=== PATIENT | male | born 1975 | race Two or more races ===

== ENCOUNTER 2024-08-05 11:25 | Outpatient (AMB) | payer OTHER, SELFPAY ==
--- NOTE | 2024-08-05 11:37 | HO.NEPHOV ---
Vital Signs 08/05/24 11:38 Height 5 ft 5 in Weight 184 lb BMI 30.6 BP 148/90 H Blood Pressure Location Lt brachial Position Sitting Pulse 72 Pulse Source Pulse Oximeter Pulse Oximetry (%) 98 Oxygen Delivery Method Room Air Intake Visit Reasons: Hypertension/ Conf Probate Paralegal Required: Yes Probate Paralegal Name: [id number] Savana Accompanied by: Spouse Allergies No Known Allergies Allergy (Verified 08/05/24 11:40) Medication List - Last Reconciled 08/05/24 by Jason Spann MD losartan 100 mg PO DAILY metoprolol succinate ER 100 mg PO DAILY tamsulosin 0.4 mg PO DAILY PRN HPI Comments Details: 49-year-old man with a history of hypertension. Blood pressure has been suboptimal. He was found to have serum creatinine 1.39 hence this referral. He is originally from [facility]. He has been compliant with the medication. [facility] Medical History (Updated 08/05/24 @ 14:55 by Jason Spann MD) Hyperthyroidism Liver disease Hypertension Family History Father Prostate cancer Review of Systems Const Denies fever(s) and Denies weight loss Card Denies chest pain Resp Denies cough and Denies hemoptysis GI Denies abdominal pain, Denies diarrhea and Denies nausea Musc Denies back pain Neuro Denies focal weakness Physical Exam Vital Signs: Last Vital Signs Pulse 72 08/05/24 11:38 BP 148/90 H 08/05/24 11:38 Pulse Ox 98 08/05/24 11:38 Oxygen Delivery Method Room Air 08/05/24 11:38 BMI result Body Mass Index 30.6 Const General: comfortable; No acute distress Orientation/consciousness: patient oriented x3 Eyes General: appearance normal, both eyes and all related structures Visual Henson: normal visual henson by confrontation Neck Neck: Yes supple and Yes no JVD Resp Effort & Inspection: normal respiratory effort and respiratory effort not decreased Auscultation: rhonchi Cardio Palpation: no palpable S3 and no palpable S4 Heart sounds: no rubs GI Inspection: Yes normal to inspection Palpation (GI): Soft to palpation Percussion: Yes normal to percussion Auscultation: normal bowel sounds General: Yes no CVA tenderness Back/Spine/Pelvis Back: no CVA tenderness Skin General skin exam: no petechiae and no purpura Neuro General: patient oriented x3 and no focal motor deficits Extrem General: No clubbing and No edema Results Reviewed Nephrology Results: No Data to Display Assessment & Plan Assessment & Plan (1) Hypertension: Code(s): I10 - Essential (primary) hypertension Category: Medical (2) Nephrolithiasis: Code(s): N20.0 - Calculus of kidney Category: Medical (3) Elevated serum creatinine: Code(s): R79.89 - Other specified abnormal findings of blood chemistry Category: Medical Plan Middle-aged man with hypertension. Goal is to maintain blood pressure less than 130/80 he should stay on low-sodium diet. Elevated serum creatinine Check 24 urine collection to calculate creatinine clearance. Baseline needs to be determined. He might have underlying hypertensive nephrosclerosis. Given the history of nephrolithiasis obstructive uropathy should be ruled out. Order renal ultrasonogram. All his questions were answered Orders: Orders Creatinine, 24 Hr Group Today I10 - Essential (primary) hypertension, N20.0 - Calculus of kidney Oxalate, 24 Hr Today I10 - Essential (primary) hypertension, N20.0 - Calculus of kidney Uric Acid, 24Hr Urine Group Today I10 - Essential (primary) hypertension, N20.0 - Calculus of kidney Citric Acid 24hr Urine Today I10 - Essential (primary) hypertension, N20.0 - Calculus of kidney Basic Metabolic Panel Today I10 - Essential (primary) hypertension, N20.0 - Calculus of kidney Sodium, 24Hr Urine Group Today I10 - Essential (primary) hypertension, N20.0 - Calculus of kidney Calcium, 24 Hr Ur Today I10 - Essential (primary) hypertension, N20.0 - Calculus of kidney UA and rflx microscopic Today I10 - Essential (primary) hypertension, N20.0 - Calculus of kidney Total Protein Urine Random Today I10 - Essential (primary) hypertension, N20.0 - Calculus of kidney Creatinine Urine Today I10 - Essential (primary) hypertension, N20.0 - Calculus of kidney Coding Level of Care Code New Pt Level 4 (93405) Diagnoses Hypertension I10 Nephrolithiasis N20.0 Elevated serum creatinine R79.89
[2024-08-05 11:38] VITALS: BP 148/90; PULSE 72; O2SAT 98; BMI 30.6
== END 2024-08-05 12:01 | disposition home or self-care (01) ==
PROVIDERS: PCP Internal Medicine; Referring Provider Internal Medicine; Visit Provider Internal Medicine Hypertension Specialist
DX: I10 Essential (primary) hypertension (principal); N20.0 Calculus of kidney; R79.89 Other specified abnormal findings of blood chemistry
CPT/HCPCS: 99204

== ENCOUNTER → 2024-08-05 11:25 | Outpatient (BNVA) | payer OTHER, SELFPAY | PROVIDERS: PCP Internal Medicine; Referring Provider Internal Medicine; Visit Provider Internal Medicine Hypertension Specialist | DX: I10 Essential (primary) hypertension (principal); N20.0 Calculus of kidney; R79.89 Other specified abnormal findings of blood chemistry | CPT/HCPCS: 99202 ==

== ENCOUNTER 2024-08-14 | Outpatient (REF) | payer OTHER, SELFPAY ==
[2024-08-15 08:07] LABS: Appearance Urine Clear; Color Urine Yellow; Glucose Urine UA Negative (Negative); Leukocyte Esterase Urine Negative (Negative); Nitrite Urine Negative (Negative); PH 6.5 (5.0-9.0); Urine Blood Negative (Negative); Urine Ketones Negative (Negative); Urine Protein Negative (Neg-Trace)
[2024-08-15 08:13] LABS: Creatinine Urine 178.38 mg/dL; Total Protein Urine Random 10 mg/dL (<12)
== END 2024-08-14 00:01 | disposition home or self-care (01) ==
LOC: HO.LNP
PROVIDERS: Visit Provider Internal Medicine Hypertension Specialist
DX: N20.0 Calculus of kidney (principal); I10 Essential (primary) hypertension
CPT/HCPCS: 81003; 82570; 84156

== ENCOUNTER 2024-08-15 07:26 | Outpatient (REF) | payer OTHER, SELFPAY ==
[2024-08-15 07:53] LABS: Total Volume 24 Hour Urine 1325 mL
[2024-08-15 07:56] LABS: Total Volume 24 Hour Urine 1325 mL
[2024-08-15 08:11] LABS: Creatinine, 24Hr Urine 1.8 G/Day (1.0-2.0); Creatinine, mg/dL 133.91; Sodium 24 Hr Urine 197.4 mmol/Day (40-220)
[2024-08-15 08:13] LABS: Creatinine, 24Hr Urine 1.8 G/Day (1.0-2.0); Creatinine, mg/dL 133.95
[2024-08-15 08:16] LABS: Creatinine, 24Hr Urine 1.8 G/Day (1.0-2.0); Creatinine, mg/dL 133.13; Uric Acid, 24 Hr Urine 429.3 mg/Day (250-750); Uric Acid, mg/dL 32.4 mg/dL
[2024-08-16 18:58] LABS: Calcium, 24 Hr Urine 83 mg/24 h; Calcium/Creatinine Ratio 48 mg/g creat (30-210); Creatinine 24Hr Urine 1.74 g/24 h (0.50-2.15)
[2024-08-20 14:24] LABS: 24hr Urine Total Volume 1325 mL; Citric Acid, 24hr Urine 322 mg/24 h (100-1300); Citric Acid/Creat Ratio 24U 185 mg/g creat (60-660); Creatinine, 24U 1.74 g/24 h (0.50-2.15)
[2024-08-31 11:53] LABS: 24hr Urine Total Volume 1325 mL
== END 2024-08-15 07:27 | disposition home or self-care (01) ==
LOC: HO.LNP 07:26
PROVIDERS: Visit Provider Internal Medicine Hypertension Specialist
DX: N20.0 Calculus of kidney (principal); I10 Essential (primary) hypertension
CPT/HCPCS: 82340; 82507; 82570; 83945; 84300; 84560

== ENCOUNTER 2024-08-18 13:53 | Outpatient (REF) | payer OTHER, SELFPAY ==
--- NOTE | ~2024-08-18 | US_ITS ---
EXAMINATION: US RETROPERITONEAL LIMITED (RENAL ONLY) CLINICAL INFORMATION: Calculus of kidney. COMPARISON: None available. TECHNIQUE: Real-time imaging of the kidneys. FINDINGS: RIGHT KIDNEY: 10.5 x 4.4 x 5.6 cm (SAG x AP x TRV). The kidney is normal in size, contour, and echogenicity. Renal cortical thickness is normal. No calculi or focal parenchymal lesions. No hydronephrosis. LEFT KIDNEY: 9.8 x 4.4 x 5.3 cm (SAG x AP x TRV). The kidney is normal in size, contour, and echogenicity. Renal cortical thickness is normal. No calculi or focal parenchymal lesions. No hydronephrosis. US/US renal BI IMPRESSION: Normal-appearing kidneys Electronically signed by: Rubén Salomon MD 10/19/2024 11:32 PM ASHOK
== END 2024-08-18 13:54 | disposition home or self-care (01) ==
LOC: HO.US 13:53
PROVIDERS: PCP Internal Medicine; Visit Provider Internal Medicine Hypertension Specialist
DX: N20.0 Calculus of kidney (principal)
CPT/HCPCS: 76775

== ENCOUNTER 2024-08-26 10:44 | Outpatient (AMB) | payer OTHER, SELFPAY ==
[2024-08-26 10:54] VITALS: BP 134/92; PULSE 62; O2SAT 97; BMI 30.9
--- NOTE | 2024-08-26 10:54 | HO.NEPHOV ---
Vital Signs 08/26/24 10:54 Height 5 ft 5 in Weight 186 lb BMI 30.9 BP 134/92 H Blood Pressure Location Rt brachial Position Sitting Pulse 62 Pulse Source Pulse Oximeter Pulse Oximetry (%) 97 Oxygen Delivery Method Room Air Intake Visit Reasons: Hypertension/ Conf Pulling Machine Operator Required: Yes Pulling Machine Operator Name: [id number] braden Accompanied by: Spouse Allergies No Known Allergies Allergy (Verified 08/26/24 10:56) Medication List - Last Reconciled 08/26/24 by Jason Spann MD losartan 100 mg PO DAILY metoprolol succinate ER 100 mg PO DAILY tamsulosin 0.4 mg PO DAILY PRN HPI Comments Details: 49-year-old man with a history of hypertension. Blood pressure has been suboptimal. He was found to have serum creatinine 1.39 hence this referral. He is originally from [facility]. He has been compliant with the medication. 08/26/2024. Home blood pressure is suboptimal. [facility] Medical History (Updated 08/05/24 @ 14:55 by Jason Spann MD) Hyperthyroidism Liver disease Hypertension Family History Father Prostate cancer Physical Exam Vital Signs: Last Vital Signs Pulse 62 08/26/24 10:54 BP 134/92 H 08/26/24 10:54 Pulse Ox 97 08/26/24 10:54 Oxygen Delivery Method Room Air 08/26/24 10:54 BMI result Body Mass Index 30.9 Results Reviewed Nephrology Results: Urine Protein Negative mg/dL (Neg-Trace) 08/14/24 Urine Creatinine 178.38 mg/dL 08/14/24 Renal US 08/18/24 Assessment & Plan Assessment & Plan (1) Hypertension: Code(s): I10 - Essential (primary) hypertension Category: Medical (2) Nephrolithiasis: Code(s): N20.0 - Calculus of kidney Category: Medical (3) Elevated serum creatinine: Code(s): R79.89 - Other specified abnormal findings of blood chemistry Category: Medical Plan Middle-aged man with hypertension. Goal is to maintain blood pressure less than 130/80 he should stay on low-sodium diet. Since blood pressure is suboptimal I will discontinue losartan and start him on Lotrel 04/04 a day. Elevated serum creatinine urine collection to calculate creatinine clearance of 85 mL/minute . He might have underlying hypertensive nephrosclerosis. No evidence of obstructive uropathy based on renal ultrasound Twenty-four urine studies were reviewed. He should be on low-sodium diet Increase p.o. fluid intake to maintain urine output of 2 L in 24 hours All his questions were answered Orders: Orders Basic Metabolic Panel 2 Months I10 - Essential (primary) hypertension, N20.0 - Calculus of kidney Medications: New amlodipine-benazepril 5-20 mg (Lotrel) 1 cap PO DAILY 30 caps 3RF Coding Level of Care Code Est Pt Level 4 (29524) Diagnoses Hypertension I10 Nephrolithiasis N20.0 Elevated serum creatinine R79.89
== END 2024-08-26 11:28 | disposition home or self-care (01) ==
PROVIDERS: PCP Internal Medicine; Visit Provider Internal Medicine Hypertension Specialist
DX: I10 Essential (primary) hypertension (principal); N20.0 Calculus of kidney; R79.89 Other specified abnormal findings of blood chemistry
CPT/HCPCS: 99214

== ENCOUNTER → 2024-08-26 10:44 | Outpatient (BNVA) | payer OTHER, SELFPAY | PROVIDERS: PCP Internal Medicine; Visit Provider Internal Medicine Hypertension Specialist | DX: I10 Essential (primary) hypertension (principal); N20.0 Calculus of kidney; R79.89 Other specified abnormal findings of blood chemistry | CPT/HCPCS: 99212 ==

== ENCOUNTER 2024-10-26 06:50 | Outpatient (REF) | payer OTHER, SELFPAY ==
[2024-10-26 08:01] LABS: Anion Gap 10 (12-20); Blood Urea Nitrogen 20 mg/dL (9-16); Calcium 9.4 mg/dL (8.4-10.2); Carbon Dioxide 25 mmol/L (22-29); Chloride 108 mmol/L (96-108); Estimated Glomerular Filt Rate 60; Glucose Random 89 mg/dL (60-115); Potassium 4.1 mmol/L (3.3-5.1); Sodium 139 mmol/L (135-145)
== END 2024-10-26 06:51 | disposition home or self-care (01) ==
LOC: HO.LAB 06:50
PROVIDERS: PCP Internal Medicine; Visit Provider Internal Medicine Hypertension Specialist
DX: N20.0 Calculus of kidney (principal); I10 Essential (primary) hypertension
CPT/HCPCS: 36415; 80048

== ENCOUNTER 2024-10-31 10:45 | Outpatient (AMB) | payer OTHER, SELFPAY ==
[2024-10-31 10:53] VITALS: BP 128/80; PULSE 75; O2SAT 98; BMI 29.5
--- NOTE | 2024-10-31 10:53 | HO.NEPHOV_ITS ---
Vital Signs 10/31/24 10:53 Height 5 ft 5 in Weight 177 lb BMI 29.5 BP 128/80 Blood Pressure Location Rt brachial Position Sitting Pulse 75 Pulse Source Pulse Oximeter Pulse Oximetry (%) 98 Oxygen Delivery Method Room Air Intake Visit Reasons: Elevated serum creatinine/ Conf Application Tester Required: Yes Application Tester Name: [id number] Barbara Accompanied by: Spouse Allergies No Known Allergies Allergy (Verified 10/31/24 10:56) Medication List - Last Reconciled 10/31/24 by Jason Spann MD amlodipine-benazepril 5-20 mg (Lotrel) 1 cap PO DAILY metoprolol succinate ER 100 mg PO DAILY tamsulosin 0.4 mg PO DAILY PRN HPI Comments Details: 49-year-old man with a history of hypertension. Blood pressure has been suboptimal. He was found to have serum creatinine 1.39 hence this referral. He is originally from [facility]. He has been compliant with the medication. 08/26/2024. Home blood pressure is suboptimal. 10/31 24 BP well controlled with Lotrel Having cough x 1 month [facility] Medical History (Updated 08/05/24 @ 14:55 by Jason Spann MD) Hyperthyroidism Liver disease Hypertension Family History Father Prostate cancer Physical Exam Vital Signs: BMI result Body Mass Index 29.5 Comfortable Neck supple no JVD. Lungs entry equal no rales. Heart S1-S2 heard no gallop or rub. Abdomen soft nontender. Neuro alert awake oriented. No asterixis. Extremities no edema. Results Reviewed Nephrology Results: Sodium 139 mmol/L (135-145) 10/26/24 Potassium 4.1 mmol/L (3.3-5.1) 10/26/24 Chloride 108 mmol/L (96-108) 10/26/24 Carbon Dioxide 25 mmol/L (22-29) 10/26/24 BUN 20 mg/dL (9-16) H 10/26/24 Creatinine 1.27 mg/dL (0.5-1.4) 10/26/24 Calcium 9.4 mg/dL (8.4-10.2) 10/26/24 Urine Protein Negative mg/dL (Neg-Trace) 08/14/24 Urine Creatinine 178.38 mg/dL 08/14/24 Renal US 08/18/24 Assessment & Plan Assessment & Plan (1) Hypertension: Code(s): I10 - Essential (primary) hypertension Category: Medical (2) Nephrolithiasis: Code(s): N20.0 - Calculus of kidney Category: Medical (3) Elevated serum creatinine: Code(s): R79.89 - Other specified abnormal findings of blood chemistry Category: Medical Plan Middle-aged man with hypertension. Goal is to maintain blood pressure less than 130/80 he should stay on low-sodium diet. Since blood pressure is well controlled I will change Lotrel 04/04 a day to EXFORGE due to cough Elevated serum creatinine urine collection to calculate creatinine clearance of 85 mL/minute . He might have underlying hypertensive nephrosclerosis. No evidence of obstructive uropathy based on renal ultrasound Twenty-four urine studies were reviewed. He should be on low-sodium diet Increase p.o. fluid intake to maintain urine output of 2 L in 24 hours All his questions were answered Orders: Orders Basic Metabolic Panel 5 Months I10 - Essential (primary) hypertension, N20.0 - Calculus of kidney Medications: New amlodipine-valsartan 5-160 mg (Exforge) 1 tab PO DAILY 90 tabs 1RF Coding Level of Care Code Est Pt Level 4 (08097) Diagnoses Hypertension I10 Nephrolithiasis N20.0 Elevated serum creatinine R79.89
== END 2024-10-31 11:11 | disposition home or self-care (01) ==
PROVIDERS: PCP Internal Medicine; Visit Provider Internal Medicine Hypertension Specialist
DX: I10 Essential (primary) hypertension (principal); N20.0 Calculus of kidney; R79.89 Other specified abnormal findings of blood chemistry
CPT/HCPCS: 99214

== ENCOUNTER → 2024-10-31 10:45 | Outpatient (BNVA) | payer OTHER, SELFPAY | PROVIDERS: PCP Internal Medicine; Visit Provider Internal Medicine Hypertension Specialist | DX: I10 Essential (primary) hypertension (principal); N20.0 Calculus of kidney; R79.89 Other specified abnormal findings of blood chemistry | CPT/HCPCS: 99212 ==

== ENCOUNTER 2024-11-24 06:28 | Outpatient (REF) | payer OTHER, SELFPAY ==
[2024-11-24 07:09] LABS: Alanine Aminotransferase 50 U/L (0-40); Alkaline Phosphatase 69 U/L (39-117); Anion Gap 10 (12-20); Aspartate Amino Transferase 28 U/L (5-37); Bilirubin Total 0.6 mg/dL (0.0-1.0); Blood Urea Nitrogen 18 mg/dL (9-16); Calcium 8.8 mg/dL (8.4-10.2); Carbon Dioxide 27 mmol/L (22-29); Chloride 108 mmol/L (96-108); Estimated Glomerular Filt Rate 58; Glucose Random 90 mg/dL (60-115); Potassium 4.3 mmol/L (3.3-5.1); Sodium 141 mmol/L (135-145); Total Protein 7.1 g/dL (6.5-8.0)
== END 2024-11-24 06:29 | disposition home or self-care (01) ==
LOC: HO.LAB 06:28
PROVIDERS: PCP Internal Medicine; Visit Provider Internal Medicine
DX: E78.2 Mixed hyperlipidemia (principal); I12.9 Hypertensive chronic kidney disease with stage 1 through stage 4 chronic kidney disease, or unspecified chronic kidney disease; N40.1 Benign prostatic hyperplasia with lower urinary tract symptoms; R80.8 Other proteinuria
CPT/HCPCS: 36415; 80053

== ENCOUNTER 2025-01-20 06:10 | Day surgery (SDC) | payer OTHER, SELFPAY ==
--- OUTSIDE RECORDS SUMMARY | 2025-01-10 17:36 | XMS_ITS ---
Author Organization [facility] Address [address] [place] [address] Care Team Providers Care Director Employee Communications Name Role Phone Goldie Felipe Primary Care Provider Connor Saunders Unavailable [phone] ALLERGIES Allergen (clinical drug ingredient) Drug/Non Drug Allergy documented on EMR Reaction Allergy Type Onset Date Status Eggplant Unknown Allergy Active REASON FOR VISIT Patient presents today for a colon screening MEDICATIONS Medication SIG (Take, Route, Frequency, Duration) Notes Start Date End Date Status Losartan Potassium 100 MG TAKE 1 TABLET BY MOUTH EVERY DAY Oral for 90 Active Tamsulosin HCl 0.4 MG TAKE 1 CAPSULE BY MOUTH EVERY DAY Oral for 90 Active Metoprolol Succinate ER 100 MG ONE TAKE ONE TABLET BY MOUTH ONCE DAILY Oral for 90 Active SOCIAL HISTORY Tobacco Use: Social History Observation Description Date Details (start date - stop date) Never Smoker NA - NA Sex Assigned At : Social History Observation Description Sex Assigned At Unknown Tobacco Use/Smoking Question Answer Notes Patient is a nonsmoker Alcohol Screen Question Answer Notes Did you have a drink contain ing alcohol in the past year? Yes How often did you have a dri nk containing alcohol in the past year? 2 to 4 times a month (2 points) How many drinks did you have on a typical day when you were drinking in the past year? 1 or 2 drinks (0 point) How often did you have 6 or more drinks on one occasion in the past year? Never (0 point) Points 2 Interpretation Negative PROBLEMS Problem Type ICD Code Onset Dates Problem Status W/U Status Risk SNOMED Code Notes Problem Colon cancer screening (Z12.11) Active confirmed Colon cancer screening (126391691) Problem Encounter for other preprocedural examination (Z01.818) Active confirmed Pre-procedure evaluation check (876173908) VITAL SIGNS Temperature 97.9 degrees Fahrenheit 09/21/20 24 Blood pressure systolic 000 mm Hg 09/21/20 24 Blood pressure diastolic 00 mm Hg 024 Height 5 ft 5 in in 09/21/2024 Weight 180 lb 2 oz lbs 09/21/2024 BMI 29.97 kg/m2 09/21/2024 Encounters Encounter Location Date Provider Diagnosis [facility] [address] [place] [address] 09/21/2024 Connor Celeste Colon cancer screeni ng Z12.11 and Encounter for other preprocedural examination Z01.818 ASSESSMENTS Encounter Date Diagnosis Assessment Notes Treatment Notes Treatment Clinical Notes 09/21/2024 Colon cancer screening (ICD-10 - Z12.11) 09/21/2024 Encounter for other preprocedural examination (ICD-10 - Z01.818) PLAN OF TREATMENT Future Test Test Name Order Date COLONOSCOPY 09/21/2024 Next Appt Details Follow Up: prn, Reason: Provider Name:Connor Celeste , 01/20/2025 07:30:00 AM, [address] [place] [address] , [place], [place], [phone], Progress Notes * Examination Category Sub-Category Detail Notes General Examination GENERAL APPEARANCE: pleasant , well nourished, well developed, in no acute distress HEAD: EYES: sclera non-icteric EARS: NOSE: THROAT: NECK/THYROID: no cervical lymphade nopathy, neck supple HEART: S1, S2 normal CHEST: LUNGS: clear to auscultatio n bilaterally ABDOMEN: normal bowel sounds, no guarding or rigidity, no guarding or rigidity, no masses palpable, soft, nontender, nondistended NEUROLOGIC: alert and oriented SKIN: nonjaundiced, no spi melody angiomata EXTREMITIES: no edema PERIPHERAL PULSES: BACK: BREASTS: MUSCULOSKELETAL: MALE GENITOURINARY: LYMPH NODES: RECTAL EXAM: FEMALE GENITOURINARY: ORAL CAVITY: mucosa moist
--- OUTSIDE RECORDS SUMMARY | 2025-01-10 17:36 | XMS_ITS ---
Author Organization [facility] Address [address] [facility] [address] [place] [id number] Care Team Providers Care Certified Surgical First Assistant Name Role Phone Goldie Felipe Primary Care Provider Connor Saunders [phone] REASON FOR VISIT bowel prep MEDICATIONS Medication SIG (Take, Route, Frequency, Duration) Notes Start Date End Date Status Dulcolax (colon prep) 5 MG take at 3:00 p.m and 7:00p.m. Orally two tablets twice a day for one day for 1 day 10/02/2024 Active MiraLax (colon prep) 17 GM/SCOOP 1 238Gm bottle mixed with Gatorade or Crystal Light Orally begin at 5:00 p.m. the day before the procedure for 1 day 10/02/2024 Active Encounters Encounter Location Date Provider Diagnosis [facility] [address] [address] 09/21/2024 Connor Celeste PLAN OF TREATMENT Medication Medication Name Sig Start Date Stop Date Notes Dulcolax (colon prep) 5 MG take at 3:00 p.m and 7:00p.m. Orally two tablets twice a day for one day for 1 day 10/02/2024 MiraLax (colon prep) 17 GM/SCOOP 1 238Gm bottle mixed with Gatorade or Crystal Light Orally begin at 5:00 p.m. the day before the procedure for 1 day 10/02/2024 Next Appt Details Provider Name:Connor Celeste , 01/20/2025 07:30:00 AM, [address] [place] [address] , [place], [place], [phone],
--- OUTSIDE RECORDS SUMMARY | 2025-01-10 17:36 | XMS_ITS | Patient Health Record ---
Author Organization [facility] Address [address] [place] [address] Care Team Providers Care Print Buyer Name Role Phone Nicolasashila Goldie Primary Care Provider Connor Saunders [phone] ALLERGIES Allergen (clinical drug ingredient) Drug/Non Drug Allergy documented on EMR Reaction Allergy Type Onset Date Status Eggplant Unknown Allergy Active REASON FOR REFERRAL No Information MEDICATIONS Medication SIG (Take, Route, Frequency, Duration) Notes Start Date End Date Status Dulcolax (colon prep) 5 MG take at 3:00 p.m and 7:00p.m. Orally two tablets twice a day for one day for 1 day 10/02/2024 Active Losartan Potassium 100 MG TAKE 1 TABLET BY MOUTH EVERY DAY Oral for 90 Active Tamsulosin HCl 0.4 MG TAKE 1 CAPSULE BY MOUTH EVERY DAY Oral for 90 Active MiraLax (colon prep) 17 GM/SCOOP 1 238Gm bottle mixed with Gatorade or Crystal Light Orally begin at 5:00 p.m. the day before the procedure for 1 day 10/02/2024 Active Metoprolol Succinate ER 100 MG ONE TAKE ONE TABLET BY MOUTH ONCE DAILY Oral for 90 Active IMMUNIZATIONS Vaccine Route Administration Date Status Comme nts Influenza Unknown 08/30/2024 Administered SOCIAL HISTORY Tobacco Use: Social History Observation [...] screening (Z12.11) Active confirmed Colon cancer screening (404787220) Problem Encounter for other preprocedural examination (Z01.818) Active confirmed Pre-procedure evaluation check (581249460) VITAL SIGNS Temperature 97.9 degrees Fahrenheit 09/21/2024 Blood pressure diastolic 00 mm Hg 09/21/2024 Height 5 ft 5 in in 09/21/2024 Blood pressure systolic 000 mm Hg 09/21/2024 Weight 180 lb 2 oz lbs 09/21/2024 BMI 29.97 kg/m2 09/21/2024 Encounters Encounter Location Date Provider Diagnosis [facility] [address] [place] [id number] 09/21/2024 Connor Celeste Colon cancer screeni ng Z12.11 and Encounter for other preprocedural examination Z01.818 [facility] [address] [place] [phone] 09/21/2024 Connor Celeste ASSESSMENTS Encounter Date Diagnosis Assessment Notes Treatment Notes Treatment Clinical Notes 09/21/2024 Colon cancer screening (ICD-10 - Z12.11) 09/21/2024 Encounter for other preprocedural examination (ICD-10 - Z01.818) PLAN OF TREATMENT Future Test Test Name Order Date COLONOSCOPY 09/21/2024 Next Appt Details Provider Name:Connor Celeste , 01/20/2025 07:30:00 AM, [address] [facility] , [place], [place], [phone], Insurance Providers Payer Name Payer Address Payer Phone Subscriber Number Group Number Insured Name Patient Relationship to Insured Coverage Start Date Coverage End Date [facility] [address] [place] [address] [id number] ROCÍO VILLAREAL Self - patient is the insured MEDICAL (GENERAL) HISTORY Medical History History ICD Code HTN BPH Denies RI,DM,CVA,Lung disease,renal dise ase Surgical History Surgery Date(Month/Year) Left leg surgery for a benign mass
--- NOTE | 2025-01-19 08:43 | HO.ANESPROP2 ---
HPI - Anesthesia Eval Consult details Narrative: 49yo M for Colonoscopy PMF Active Problems Active Problems: All Active Problems Elevated serum creatinine (Acute) Nephrolithiasis (Acute) Hypertension (Acute) Past Medical History Medical History (Updated 01/18/25 @ 14:42 by Catherine Vásquez RN) BPH (benign prostatic hyperplasia) HTN (hypertension) Liver disease Family History Family History Father Prostate cancer Surgical History Surgical History (Updated 01/18/25 @ 14:45 by Catherine Vásquez RN) History of surgery on lower extremity Social History Social History (Updated 01/18/25 @ 14:43 by Catherine Vásquez RN) Household Members: Spouse Meds Allergies Allergy/AdvReac Type Severity Reaction Status Date / Time eggplant Allergy Unknown Unknown Verified 01/18/25 14:44 Home Medications ?Medication ?Instructions ?Recorded ?Confirmed ?Last Taken ?Type metoprolol succinate 100 mg 100 mg PO DAILY 08/03/24 01/18/25 Unknown History tablet,extended release 24 hr tamsulosin 0.4 mg capsule 0.4 mg PO DAILY 08/05/24 01/18/25 Unknown History Exam Height,Weight and Vital Signs: Height 5 ft 5 in Weight 81.703 kg Assessment and Plan Assessment Anesthesia Assessment: Chart Reviewed
[2025-01-20 06:42] VITALS: BMI 28.7
[2025-01-20 06:57] VITALS: BP 139/82; PULSE 66; RESP 16; TEMP 36.4; O2SAT 99
[2025-01-20] MEDS: Lactated Ringers 1,000 ML 100 ML IVCONT (07:06)
--- NOTE | 2025-01-20 07:42 | HO.ANESPROP2 ---
[facility] Active Problems Active Problems: All Active Problems Elevated serum creatinine (Acute) Nephrolithiasis (Acute) Hypertension (Acute) Past Medical History Medical History No blood products BPH (benign prostatic hyperplasia) HTN (hypertension) Liver disease Functional capacity: independent ambulation Family History Family History Father Prostate cancer Family history of problems with anesthesia: No Surgical History Surgical History H/O wisdom tooth extraction History of surgery on lower extremity History of Problems with Anesthesia: No Social History Social History Household Members: Spouse Patient Tobacco Use Status: Former Tobacco user Use of substances other than those prescribed or required for medical reasons: No Are you DNR?: No Advance Directives: No Advance Directives Information Provided: Yes Nutrition Risks: No Nutritional Risk Poor oral hygiene: No Meds Allergies Allergy/AdvReac Type Severity Reaction Status Date / Time eggplant Allergy Severe Anaphylaxis Verified 01/20/25 06:41 Active Medications: Current Medications Lactated Ringer's (Lr) 1,000 mls @ 100 mls/hr IVCONT .Q10H [place] Last Admin: 01/20/25 07:06 Dose: 100 mls/hr Sodium Biphosphate/Sodium Phosphate (Sodium Phosphate,[place]-Dibasic 133 Ml Enema) 133 ml MO ONCE PRN PRN Reason: Poor Colonoscopy Prep Results Home Medications ?Medication ?Instructions ?Recorded ?Confirmed ?Last Taken ?Type metoprolol succinate 100 mg 100 mg PO DAILY 08/03/24 01/18/25 01/20/25 History tablet,extended release 24 hr Exam Height,Weight and Vital Signs: Height 5 ft 5 in Weight 78.3 kg Last Vital Signs Temp 97.5 F 01/20/25 06:57 Pulse 66 01/20/25 06:57 Resp 16 01/20/25 06:57 BP 139/82 01/20/25 06:57 Pulse Ox 99 01/20/25 06:57 O2 Del Method Room Air 01/20/25 06:57 Airway Mallampati Class: II TM Dist: >3cm Neck ROM: Full Heart: RRR Lungs: CTA Assessment and Plan Assessment Anesthesia Assessment: Anesthesia Plan Discussed and Chart Reviewed Final Anesthetic Review Family History of Problems with Anesthesia: No History of Problems with Anesthesia: No NPO: Yes ASA Class: II Final Preanesthetic Review: Meds/Allgs Chart Reviewed, Consent Obtained/Reviewed and Anes Risks/Benef Reviewed Patient Risk: Low Procedure Risk: Low Anesthetic Plan Anesthetic Plan: MAC: Disposition: Standard PACU
[2025-01-20 08:26] VITALS: BP 87/48; PULSE 61; RESP 16; TEMP 36.4; O2SAT 97
--- NOTE | 2025-01-20 08:26 | PM.OP ---
Brief Operative Note Date of Service: 01/20/25 Pre-op diagnosis: Screening Post-op diagnosis: other (Colon polyps) Procedure: Colonoscopy to the cecum with bx/removal of polyp, and cold snare polypectomy Surgeon: Connor Celeste MD Anesthesia: MAC Was an [employer] used for this Procedure?: No Estimated blood loss (mL): 2.0 Pathology: other (A. Cecal polyp B. Proximal ascending colon polyp) Condition: stable Disposition: PACU
[2025-01-20 08:48] VITALS: BP 114/75; PULSE 65; RESP 17; TEMP 36.1; O2SAT 97
--- NOTE | 2025-01-20 09:09 | OP_ITS ---
DATE OF SERVICE: 01/20/2025 SURGEON: Connor Celeste MD INDICATIONS: The patient presents for evaluation of colorectal cancer screening. Full consent has been obtained from him for this, including risks of bleeding and perforation. PREOPERATIVE DIAGNOSIS: Colorectal cancer screening. POSTOPERATIVE DIAGNOSIS: PROCEDURE PERFORMED: ESTIMATED BLOOD LOSS: COMPLICATIONS: ANESTHESIA: Medication used, monitored anesthesia care. ASSISTANTS: SPECIMENS: POSTOPERATIVE DIAGNOSES: Colorectal cancer screening, colon polyps, diverticulosis, and internal hemorrhoids. PROCEDURES PERFORMED: Colonoscopy to the cecum with biopsy and removal of polyp and cold snare polypectomy. DESCRIPTION OF PROCEDURE: The patient was placed in left lateral decubitus position. The digital rectal exam revealed no abnormalities. The Olympus video pediatric colonoscope was entered into the rectum and advanced easily to the cecum. Once in the cecum, I did identify cecal pouch with appendiceal orifice and a normal-appearing ileocecal valve. The entire cecum was well visualized. In the cecum was a flat, approximately 3 mm grossly adenomatous polyp, which was biopsied and completely removed with the cold biopsy forceps. Remainder of the cecum appeared normal. The scope was slowly withdrawn assessing all mucosal surfaces carefully. Preparation was excellent. In the very proximal ascending colon was a flat, approximately 5 or 6 mm polyp, which was removed by cold snare polypectomy, recovered by suction. The polypectomy site appeared clean, without any sign of residual polyp nor significant bleeding. I did not visualize any other polyps, colitis, nor angiodysplasia. There was a mild amount of sigmoid diverticulosis. In the rectum, scope was retroflexed visualizing internal hemorrhoids, but no other pathology. The rectal mucosa appeared normal. Scope was straightened and withdrawn from the patient. He tolerated the procedure well and was returned to recovery area in stable condition. IMPRESSION: 1. Small colon polyps. 2. Diverticulosis. 3. Internal hemorrhoids. PLAN: The results of the pathology will be checked. If either of these are tubular adenomas or serrated polyps, I would recommend a repeat colonoscopy in 5 years. If they are both hyperplastic, I would recommend a followup colonoscopy in 10 years. He will otherwise see me on a p.r.n. basis. MD SHANEL Pascal/RYANN / [phone]
--- NOTE | 2025-01-20 09:10 | HO.POSTANES ---
Post Anesthesia Evaluation Post Anesthesia Evaluation Date of Service: 01/20/25 Vital Signs: Vital Signs Temp Pulse Resp BP Pulse Ox O2 Del Method 01/20/25 08:48 97 F 65 17 114/75 97 Room Air 01/20/25 08:26 97.5 F 61 16 87/48 L 97 Room Air 01/20/25 06:57 97.5 F 66 16 139/82 99 Room Air Anesthesia: Monitored Mental Status: Awake Pain Control: Satisfactory Nausea/Vomiting: None Hydration: Adequate Anesthesia-Related Issues: No Anes. Related Issues
== END 2025-01-20 09:10 | disposition home or self-care (01) ==
PROVIDERS: PCP Internal Medicine; Visit Provider Internal Medicine
PROC: 0DJD8ZZ Inspection of Lower Intestinal Tract, Via Natural or Artificial Opening Endoscopic (ICD-10-PCS; CPT 45378; principal; 2025-01-20 07:30)
DX: Z12.11 Encounter for screening for malignant neoplasm of colon (principal); Z83.719 Family history of colon polyps, unspecified; D12.0 Benign neoplasm of cecum; K63.5 Polyp of colon; K57.30 Diverticulosis of large intestine without perforation or abscess without bleeding; K64.8 Other hemorrhoids; N40.0 Benign prostatic hyperplasia without lower urinary tract symptoms; I10 Essential (primary) hypertension; Z79.899 Other long term (current) drug therapy; Z98.890 Other specified postprocedural states
CPT/HCPCS: 45385; 45380; 88305; J2003; J2704

== ENCOUNTER 2025-03-20 06:15 | Outpatient (REF) | payer OTHER, SELFPAY ==
[2025-03-20 07:46] LABS: Anion Gap 10 (12-20); Blood Urea Nitrogen 19 mg/dL (9-16); Calcium 9.1 mg/dL (8.4-10.2); Carbon Dioxide 28 mmol/L (22-29); Chloride 107 mmol/L (96-108); Estimated Glomerular Filt Rate > 60; Glucose Random 87 mg/dL (60-115); Potassium 4.4 mmol/L (3.3-5.1); Sodium 141 mmol/L (135-145)
== END 2025-03-20 06:16 | disposition home or self-care (01) ==
LOC: HO.LAB 06:15
PROVIDERS: PCP Internal Medicine; Visit Provider Internal Medicine Hypertension Specialist
DX: I10 Essential (primary) hypertension (principal); N20.0 Calculus of kidney
CPT/HCPCS: 36415; 80048

== ENCOUNTER 2025-03-23 09:11 | Outpatient (AMB) | payer OTHER, SELFPAY ==
--- NOTE | 2025-03-23 09:20 | HO.NEPHOV_ITS ---
Vital Signs 03/23/25 09:21 Height 5 ft 5 in Weight 181 lb BMI 30.1 BP 118/76 Blood Pressure Location Lt brachial Position Sitting Pulse 65 Pulse Source Pulse Oximeter Pulse Oximetry (%) 97 Oxygen Delivery Method Room Air Intake Visit Reasons: Elevated serum creatinine-Conf Property Utilization Manager Required: No Accompanied by: Spouse Allergies eggplant Allergy (Severe, Verified 03/23/25 09:22) Anaphylaxis Medication List - Last Reconciled 03/23/25 by Jason Spann MD amlodipine-valsartan 5-160 mg (Exforge) 1 tab PO DAILY metoprolol succinate ER 100 mg PO DAILY HPI Comments Details: 49-year-old man with a history of hypertension. Blood pressure has been suboptimal. He was found to have serum creatinine 1.39 hence this referral. He is originally from [facility]. He has been compliant with the medication. 08/26/2024. Home blood pressure is suboptimal. 10/31 24 ; BP well controlled with Lotrel;Having cough x 1 month 03/23/25 No further cough after switching to Exforge BP well controlled [facility] Medical History No blood products BPH (benign prostatic hyperplasia) HTN (hypertension) Liver disease Surgical History (Updated 03/23/25 @ 09:23 by JESU Crow) History of colonoscopy (~01/2025) H/O wisdom tooth extraction History of surgery on lower extremity Family History Father Prostate cancer Social History Household Members: Spouse Patient Tobacco Use Status: Former Tobacco user Physical Exam Vital Signs: Last Vital Signs Pulse 65 03/23/25 09:21 BP 118/76 03/23/25 09:21 Pulse Ox 97 03/23/25 09:21 Oxygen Delivery Method Room Air 03/23/25 09:21 BMI result Body Mass Index 30.1 Comfortable Neck supple no JVD. Lungs entry equal no rales. Heart S1-S2 heard no gallop or rub. Abdomen soft nontender. Neuro alert awake oriented. No asterixis. Extremities no edema. Results Reviewed Nephrology Results: Sodium 141 mmol/L (135-145) 03/20/25 Potassium 4.4 mmol/L (3.3-5.1) 03/20/25 Chloride 107 mmol/L (96-108) 03/20/25 Carbon Dioxide 28 mmol/L (22-29) 03/20/25 BUN 19 mg/dL (9-16) H 03/20/25 Creatinine 1.08 mg/dL (0.5-1.4) 03/20/25 Calcium 9.1 mg/dL (8.4-10.2) 03/20/25 Urine Protein Negative mg/dL (Neg-Trace) 08/14/24 Urine Creatinine 178.38 mg/dL 08/14/24 Renal US 08/18/24 Assessment & Plan Assessment & Plan (1) Hypertension: Code(s): I10 - Essential (primary) hypertension Category: Medical (2) Nephrolithiasis: Code(s): N20.0 - Calculus of kidney Category: Medical (3) Elevated serum creatinine: Code(s): R79.89 - Other specified abnormal findings of blood chemistry Category: Medical Plan Middle-aged man with hypertension. Goal is to maintain blood pressure less than 130/80 he should stay on low-sodium diet. Since blood pressure is well controlled Lotrel switched ot Exforge due to cough I will continue EXFORGE h/o Elevated serum creatinine urine collection to calculate creatinine clearance of 85 mL/minute Cr is back to baseline . He might have underlying hypertensive nephrosclerosis. No evidence of obstructive uropathy based on renal ultrasound Twenty-four urine studies were reviewed. He should be on low-sodium diet Increase p.o. fluid intake to maintain urine output of 2 L in 24 hours All his questions were answered Orders: Orders Basic Metabolic Panel 6 Months I10 - Essential (primary) hypertension, R79.89 - Other specified abnormal findings of blood chemistry Coding Level of Care Code Est Pt Level 4 (92971) Diagnoses Hypertension I10 Nephrolithiasis N20.0 Elevated serum creatinine R79.89
[2025-03-23 09:21] VITALS: BP 118/76; PULSE 65; O2SAT 97; BMI 30.1
--- OUTSIDE RECORDS SUMMARY | 2025-03-23 09:44 | XMS_ITS ---
Author Organization [facility] Address [address] [place] [address] Care Team Providers Care Clinical Data Research Name Role Phone Goldie Felipe Primary Care Provider Connor Saunders Unavailable [phone] Allergies Allergen (clinical drug ingredient) Drug/Non Drug Allergy documented on EMR Reaction Allergy Type Onset Date Status Eggplant Unknown Allergy Active REASON FOR VISIT Patient presents today for a colon screening Medications Medication SIG (Take, Route, Frequency, Duration) Notes Start Date End Date Status Losartan Potassium 100 MG TAKE 1 TABLET BY MOUTH EVERY DAY Oral for 90 Active Tamsulosin HCl 0.4 MG TAKE 1 CAPSULE BY MOUTH EVERY DAY Oral for 90 Active Metoprolol Succinate ER 100 MG ONE TAKE ONE TABLET BY MOUTH ONCE DAILY Oral for 90 Active Social History Tobacco Use: Social History Observation Description Date Details (start date - stop date) Never Smoker NA - NA Tobacco Use/Smoking Question Answer Notes Patient is [...] Never (0 point) Points 2 Interpretation Negative Section Notes: Nonsmoker; no sig alcohol Problems Problem Type SNOMED Code ICD Code Onset Dates Problem Status W/U Status Risk Notes Problem Colon cancer screening (622351353) Colon cancer screening (Z12.11) Active confirmed Problem Pre-procedure evaluation check (345797461) Encounter for other preprocedural examination (Z01.818) Active confirmed Vital Signs Temperature 97.9 degrees Fahrenheit 09/21/20 24 Blood pressure systolic 000 mm Hg 09/21/20 24 Blood pressure diastolic 00 mm Hg 024 Height 5 ft 5 in in 09/21/2024 Weight 180 lb 2 oz lbs 09/21/2024 BMI 29.97 kg/m2 09/21/2024 Encounters Encounter Location Date Provider Diagnosis [facility] [address] [place] [address] 09/21/2024 Connor Celeste Colon cancer screeni ng Z12.11 and Encounter for other preprocedural examination Z01.818 Assessments Encounter Date Diagnosis (ICD Code) Assessment Notes Treatment Notes Treatment Clinical Notes Section Notes 09/21/2024 Colon cancer screening (ICD-10 - Z12.11) Overall, Rocío appears quite well. Given his age, his good clinical appearance, and his never having had a colonoscopy, I did recommend a colonoscopy for screening purposes. We did review the rationale for this regard to colon cancer prevention. Full consent was obtained for this, including risks of bleeding and perforation. The procedure will be done with monitored anesthesia care. We will review the procedure again with a medical receptionist on the day of the procedure. Rocío was comfortable with this plan. Thank you again for allowing me to participate in Rocío's care. I shall continue to keep you advised of his progress. 09/21/2024 Encounter for other preprocedural examination (ICD-10 - Z01.818) Overall, Rocío appears quite well. Given his age, his good clinical appearance, and his never having had a colonoscopy, I did recommend a colonoscopy for screening purposes. We did review the rationale for this regard to colon cancer prevention. Full consent was obtained for this, including risks of bleeding and perforation. The procedure will be done with monitored anesthesia care. We will review the procedure again with a medical receptionist on the day of the procedure. Rocío was comfortable with this plan. Thank you again for allowing me to participate in Rocío's care. I shall continue to keep you advised of his progress. Plan Of Treatment Future Test Test Name Order Date COLONOSCOPY 09/21/2024 Next Appt Details Follow Up: prn, Reason: Progress Notes * KATHLEEN TORRES ROCÍODOB:[birth year] (49 yo M)Acc No.[id number]:09/21/2024 Progress Notes Patient:?ROCÍO VILLAREAL Provider:?Connor Celeste MD :1975???Age:49 Y???Sex:Male Walt e:09/21/2024 Address:[address] [place], [place] [id number] Pcp:Goldie Felipe Subjective: * Chief Complaints: * ???Patient presents today fo r a colon screening * HPI: ???incontinence:? I saw Rocío in the office today for evaluation of colorectal cancer screening. He is accompanied by his . ?As you know, Rocío is a healthy 49-year-old male who presently feels well. He enjoys a good appetite, without any significant heartburn or dysphagia. His bowel movements have been regular and without any signs of bleeding. He denies abdominal pain, jaundice, nor unintentional weight loss. He denies any known family history of colon cancer, although his father did have colon polyps. Rocío has never had a colonoscopy. * ROS:?General/Constitutional:?Change in appetite?denies.?Chills?denies.?Fatigue?denies.?Ophthalmologic:?Comments?all negative.?ENT:?Comments?all negative.?Respiratory:?hemoptysis?denies.?Cough?denies.?Cardiovascular:?Chest pain?denies.?Orthopnea?denies.?Gastrointestinal:?Comments?See HPI for details.?Genitourinary:?Hematuria?denies.?Dysuria?denies.?Musculoskeletal:?Painful joints?denies.?Weakness?denies.?Skin:?Itching?denies.?Rash?denies.?Neurologic:?Headache?denies.?Seizures?denies.?Psychiatric:?Comments?all negative.? * Medical History:? * Surgical History:?Left leg s urgery for a benign mass * Hospitalization/Major Diagno stic Procedure:?No Hospitalization History. * Family History:?Father: dece ased, diagnosed with Colon cancer, HTN (hypertension), Colon polyps.?Mother: alive.? No family history of liver cancer. Father had colon polyps. * Social History:?Tobacco Use:?Tobacco Use/Smoking?Patient is a?nonsmoker.?Drugs/Alcohol:?Alcohol Screen?Did you have a drink containing alcohol in the past year??Yes,?How often did you have a drink containing alcohol in the past year??2 to 4 times a month (2 points),?How many drinks did you have on a typical day when you were drinking in the past year??1 or 2 drinks (0 point),?How often did you have 6 or more drinks on one occasion in the past year??Never (0 point),?Points?2,?Interpretation?Negative.?Miscellaneous:?Marital status: . Occupation: Works at [employer]. ???Nonsmoker; no sig alcohol. * Medications:?TakingLosartan Potassium 100 MG Tablet TAKE 1 TABLET BY MOUTH EVERY DAY Oral Metoprolol Succinate ER 100 MG Tablet Extended Release 24 Hour ONE TAKE ONE TABLET BY MOUTH ONCE DAILY Oral Tamsulosin HCl 0.4 MG Capsule TAKE 1 CAPSULE BY MOUTH EVERY DAY Oral Medication List reviewed and reconciled with the patientTaking Losartan Potassium 100 MG Tablet TAKE 1 TABLET BY MOUTH EVERY DAY Oral Taking Metoprolol Succinate ER 100 MG Tablet Extended Release 24 Hour ONE TAKE ONE TABLET BY MOUTH ONCE DAILY Oral Taking Tamsulosin HCl 0.4 MG Capsule TAKE 1 CAPSULE BY MOUTH EVERY DAY Oral Medication List reviewed and reconciled with the patient * Allergies:?Eggplantyes[Aller gies Verified] Objective: * Vitals:?Wt: 180 lb 2 oz, Ht: 5 ft 5 in, BMI:29.97 Index, BP: 000/00 mm Hg, Temp: 97.9. * Examination: ???General Examination: ?GENERAL APPEARANCE:?pleasant, well nourished, well developed, in no acute distress.?EYES:?sclera non-icteric.?ORAL CAVITY:?mucosa moist.?NECK/THYROID:?no cervical lymphadenopathy, neck supple.?SKIN:?nonjaundiced, no spider angiomata.?HEART:?S1, S2 normal.?LUNGS:?clear to auscultation bilaterally.?ABDOMEN:?normal bowel sounds, no guarding or rigidity, no guarding or rigidity, no masses palpable, soft, nontender, nondistended.?EXTREMITIES:?no edema.?NEUROLOGIC:?alert and oriented.? Assessment: * Assessment: 1.?Encounter for other prepr ocedural examination - Z01.818 (Primary)?2.?Colon cancer screening - Z12.11? Overall, Rocío appears quite well. Given his age, his good clinical appearance, and his never having had a colonoscopy, I did recommend a colonoscopy for screening purposes. We did review the rationale for this regard to colon cancer prevention. Full consent was obtained for this, including risks of bleeding and perforation. The procedure will be done with monitored anesthesia care. We will review the procedure again with a medical receptionist on the day of the procedure. Rocío was comfortable with this plan. Thank you again for allowing me to participate in Rocío's care. I shall continue to keep you advised of his progress. Plan: * Treatment: * Procedure Codes:?3017F COLOR ECTAL CA SCREEN DOC [id number] TOBACCO [id number] BP SCR NOT PRFRM REC REASON NOS * Preventive Medicine:? ??Counseling:?Care goal follow-up plan:?Above Normal BMI Follow-up?Giving encouragement to exercise,?BMI management provided?Yes.? * Follow Up:?prn * * Sign off status: Completed true * Provider:?Connor Celeste MD Date:? 024 Generated for Marcos de los santos/Juanjo/eTransmitting on:?03/23/2025 09:44 AM EDT History and Physical Notes * HPI (History of Present Illness) Category Sub-Category Detail Notes Category Not es incontinence I saw Rocío in the office today for evaluation of colorectal cancer screening. He is accompanied by his . As you know, Rocío is a healthy 49-year-old male who presently feels well. He enjoys a good appetite, without any significant heartburn or dysphagia. His bowel movements have been regular and without any signs of bleeding. He denies abdominal pain, jaundice, nor unintentional weight loss. He denies any known family history of colon cancer, although his father did have colon polyps. Rocío has never had a colonoscopy. Examination Category Sub-Category Detail Notes Category Not es General Examination GENERAL APPEARANCE: pleasant , well [...]
--- OUTSIDE RECORDS SUMMARY | 2025-03-23 09:44 | XMS_ITS | Patient Health Record ---
Author Organization [facility] Address [address] [place] [address] Care Team Providers Care Edi Consultant Name Role Phone Goldie Felipe Primary Care Provider UnavailConnor Carmona [phone] Allergies Allergen (clinical drug ingredient) Drug/Non Drug Allergy documented on EMR Reaction Allergy Type Onset Date Status Eggplant Unknown Allergy Active Results Component Value Reference Range Notes Pathology (Not yet reviewed by provider) Interpretation: Performing Lab:[facility], [address] [place] [phone] Notes/Report: Name: Fisher Rocío Anthony Age/Sex: 49/M : 1975 Unit#: [id number] Attend Dr: Connor Celeste MD Re01/20/25 Statu s: [facility] [place] [facility] Disch: SPEC : [id number] RECD : 01/20/2548 STATUS: NATHANAEL SANCHEZ NUM: [id number] KAJAL: 01/20/25-809 [facility] DR: Connor Celeste MD ENTERED: 01/20/25- 52 SP TYPE: Surgical OTHR DR: Goldie Felipe MD ORDERED: HE Stain/6, Gross Micro L4/2 Diagnosis A. Colon, cecal poly p: Tubular adenoma, completely excised; negative for high-grade dysplasia and carcinoma. B. Colon, proximal a scending, polyp: Polypoid colonic mucosa with lymphoid aggregate and focal minimal hy perplastic changes; no adenomatous dysplasia seen. Clinical History Pre-Op Dx: Screening Post-Op Dx: Colon po lyps, diverticulosis, hemorrhoids Microscopic Description Microscopic sections reviewed. Material Received A. Cecal polyp B. Proximal ascending colon polyp Gross Description Received in 2 parts. A. Received in forma oren labeled ?cecal polyp? is a fragment of miller-white soft tissue measuring 0.3 cm in greatest dimension which is wrapped in lens paper and entirely submitted for microscopic exam ination, 1 piece in cassette A. B. Received in forma oren labeled ?proximal ascending colon polyp? is a fragment of miller-white soft tissue measurin g 0.7 cm in greatest dimension which is wrapped in lens paper and entirely submitted f or microscopic examination, 1 piece in cassette B. ([facility]) Copies To: Goldie Felipe MD [facility] [address] [place] [address] [place], [place] [id number] CONTINUED ON NEXT PAGE Name: Natalia SaulRocío irvin Age/Sex: 49/M : 1975 Unit#: [id number] Attend Dr: Connor Celeste MD Re01/20/25 Status : [facility] Location: [facility] Disch: SPEC : [id number] RECD : 01/20/25 STATUS: NATHANAEL SANCHEZ NUM: [id number] KAJAL: 01/20/25 [facility] DR: Connor Celeste MD ENTERED: 01/20/25 52 SP TYPE: Surgical OTHR DR: Goldie Felipe MD ORDERED: LESLIE Stain/6, Junior Garcia L4/2 Copies To: (Continued) Connor Celeste MD [address] [place] [address] Signed (si shaun on file) Elizabeth Esqueda 01/23/25 1427 END OF REPORT Reason For Referral No Information Medications Medication SIG (Take, Route, Frequency, Duration) [...] MOUTH ONCE DAILY Oral for 90 Active Immunizations Vaccine Route Administration Date Status Comme nts Influenza Unknown 08/30/2024 Administered Social History Tobacco Use: Social History Observation [...] Status Risk Notes Problem Colon cancer screening (428719000) Colon cancer screening (Z12.11) Active confirmed Problem Pre-procedure evaluation check (542116379) Encounter for other preprocedural examination (Z01.818) Active confirmed Vital Signs Temperature 97.9 degrees Fahrenheit 09/21/2024 Blood pressure diastolic 00 mm Hg 09/21/2024 Height 5 ft 5 in in 09/21/2024 Blood pressure systolic 000 mm Hg 09/21/2024 Weight 180 lb 2 oz lbs 09/21/2024 BMI 29.97 kg/m2 09/21/2024 Encounters Encounter Location Date Provider Diagnosis [facility] Out[facility] [address] [place] [phone] 01/20/2025 Connor Celeste Colon cancer screeni ng Z12.11 ; Colon polyps K63.5 ; Diverticulosis of large intestine without perforation or abscess without bleeding K57.30 and Other hemorrhoids K64.8 [facility] [address] [place] [address] 09/21/2024 Connor Celeste Colon cancer screeni ng Z12.11 and Encounter for other preprocedural examination Z01.818 [facility] [address] [place] [address] 09/21/2024 Connor Celeste Assessments Encounter Date Diagnosis (ICD Code) Assessment Notes Treatment Notes Treatment Clinical Notes Section Notes 01/20/2025 Colon cancer screening (ICD-10 - Z12.11) 01/20/2025 Colon polyps (ICD-10 - K63.5) 09/21/2024 Colon cancer screening (ICD-10 - Z12.11) [...] review the procedure again with a medical claims examiner on the day of the procedure. Rocío [...] review the procedure again with a medical claims examiner on the day of the procedure. Rocío was comfortable with this plan. Thank you again for allowing me to participate in Rocío's care. I shall continue to keep you advised of his progress. 01/20/2025 Diverticulosis of large intestine without perforation or abscess without bleeding (ICD-10 - K57.30) 01/20/2025 Other hemorrhoids (ICD-10 - K64.8) Plan Of Treatment Pending Test Test Name Order Date Pathology 01/20/2025 Future Test Test Name Order Date COLONOSCOPY 09/21/2024 Insurance Providers Payer Name Payer Address Payer Phone Subscriber Number Group Number Insured Name Patient Relationship to Insured Coverage Start Date Coverage End Date [facility] [address] [place] [address] [id number] ROCÍO VILLAREAL Self - patient is the insured Medical (General) History Medical History History ICD Code HTN BPH Denies [place],DM,CVA,Lung disease,renal dise ase Surgical History Surgery Date(Month/Year) Left leg surgery for a benign mass
--- OUTSIDE RECORDS SUMMARY | 2025-03-23 09:44 | XMS_ITS ---
Author Organization [facility] Address [address] [place] [address] [place] [address] Care Team Providers Care Ict Systems Test Engineer Name Role Phone Goldie Felipe Primary Care Provider Connor Saunders [phone] REASON FOR VISIT bowel prep Medications Medication SIG (Take, Route, Frequency, Duration) [...] Active Encounters Encounter Location Date Provider Diagnosis [facility] [address] 09/21/2024 Connor Celeste Plan Of Treatment Medication Medication Name Sig Start Date Stop Date Notes Dulcolax (colon prep) 5 MG take at 3:00 p.m and 7:00p.m. Orally two tablets twice a day for one day for 1 day 10/02/2024 MiraLax (colon prep) 17 GM/SCOOP 1 238Gm bottle mixed with Gatorade or Crystal Light Orally begin at 5:00 p.m. the day before the procedure for 1 day 10/02/2024 Progress Notes * ROCÍO VILLAREALDOB:[birth year] (49 yo M)Acc No.[id number]:09/21/2024 Patient:?ROCÍO VILLAREAL :1975???Age:49 Y???Sex:Male Address:[address] [place] [address], [address] * Refills? Start MiraLax (colon prep) Powder, 17 GM/SCOOP, Orally, 1, 1 238Gm bottle mixed with Gatorade or Crystal Light, begin at 5:00 p.m. the day before the procedure, 1 day, Refills=0 Start Dulcolax (colon prep) Tablet Delayed Release, 5 MG, Orally, 4, take at 3:00 p.m and 7:00p.m., two tablets twice a day for one day, 1 day, Refills=0 * true * Date:? Generated for Marcos de los santos/Juanjo/Eric on:?03/23/2025 09:44 AM EDT
--- OUTSIDE RECORDS SUMMARY | 2025-03-23 09:44 | XMS_ITS ---
Author Organization [facility] Address [address] [place] [address] Care Team Providers Care Manager Contract Name Role Phone Goldie Felipe Primary Care Provider Unavailab Connor Ca [phone] REASON FOR VISIT screening Encounters Encounter Location Date Provider Diagnosis [facility] [place] [address] [place] [phone] 01/20/2025 Connor Celeste Colon cancer scree rohith [...] No Information Progress Notes * ROCÍO VILLAREALDOB:[birth year] (49 yo M)Acc No.[id number]:01/20/2025 COLON WITH MAC Patient:?ROCÍO VILLAREAL Provider:?Connor Celeste MD :1975???Age:49 Y???Sex:Male Walt e:01/20/2025 Address:[address] [place] [address] [facility] Pcp:Goldie Felipe Subjective: * Chief Complaints: * ???1. Screening. * Medical History:? Objective: * Vitals:? Assessment: * Assessment: 1.?Colon cancer screening - Z12.11 (Primary)???2.?Colon polyps - K63.5???3.?Diverticulosis of large intestine without perforation or abscess without bleeding - K57.30???4.?Other hemorrhoids - K64.8??? Plan: * Treatment: * Procedure Codes:?61613 LESIO N REMOVAL COLONOSCOPY, 10340 COLONOSCOPY AND BIOPSY, Modifiers: 59 * * The named appointment provid er may or may not be the originator of this progress note, and it is not deemed complete until electronically signed by the appointment provider. Sign off status: Pending * Provider:?Connor Celeste MD Date:? 025 Generated for Marcos de los santos/Juanjo/Cemitting on:?03/23/2025 09:43 AM EDT
== END 2025-03-23 09:32 | disposition home or self-care (01) ==
LOC: HO.HKA 09:11
PROVIDERS: PCP Internal Medicine; Visit Provider Internal Medicine Hypertension Specialist
DX: I10 Essential (primary) hypertension (principal); N20.0 Calculus of kidney; R79.89 Other specified abnormal findings of blood chemistry
CPT/HCPCS: 99214

== ENCOUNTER → 2025-03-23 09:11 | Outpatient (BNVA) | payer OTHER, SELFPAY | PROVIDERS: PCP Internal Medicine; Visit Provider Internal Medicine Hypertension Specialist | DX: I10 Essential (primary) hypertension (principal); N20.0 Calculus of kidney; R79.89 Other specified abnormal findings of blood chemistry | CPT/HCPCS: 99212 ==

== ENCOUNTER 2025-05-18 05:59 | Outpatient (REF) | payer OTHER, SELFPAY ==
[2025-05-18 06:20] LABS: MANUAL DIFF FLAG NO
[2025-05-18 07:45] LABS: Hematocrit 39.2 % (42.0-52.0); Hemoglobin 14.1 g/dl (14.0-18.0); Imm Gran Abs Auto 0.03 X10*3/uL (0.00-0.03); Imm Gran Pct Auto 0.4 % (0.0-0.4); Lymphocytes Absolute Auto 2.6 X10*3/uL (1.2-4.9); Mean Corpuscular HGB Conc 36.0 g/dl (31.0-36.0); Mean Corpuscular Hemoglobin 28.3 pg (27.0-33.0); Mean Corpuscular Volume 78.6 fL (80.0-98.0); NRBC Abs Auto 0.000 X10*3/uL (0.0-0.012); NRBC Pct Auto 0.0 /100WBC (0.0-0.2); Platelet Count 220 X10*3/uL (160-400); Red Blood Count 4.99 X10*6/uL (4.60-5.80); White Blood Count 8.0 X10*3/uL (4.8-10.8)
[2025-05-18 08:22] LABS: Alanine Aminotransferase 46 U/L (0-40); Albumin Level 4.0 g/dL (3.5-5.0); Alkaline Phosphatase 52 U/L (39-117); Anion Gap 11 (12-20); Aspartate Amino Transferase 34 U/L (5-37); Blood Urea Nitrogen 21 mg/dL (9-16); Calcium 8.8 mg/dL (8.4-10.2); Carbon Dioxide 27 mmol/L (22-29); Chloride 107 mmol/L (96-108); Cholesterol 157 mg/dL (<200); Estimated Glomerular Filt Rate 55; HDL Cholesterol 30 mg/dL (>40); Potassium 4.7 mmol/L (3.3-5.1); Sodium 140 mmol/L (135-145); Total Protein 6.7 g/dL (6.5-8.0); Triglycerides 61 mg/dL (<150)
== END 2025-05-18 06:00 | disposition home or self-care (01) ==
LOC: HO.LAB 05:59
PROVIDERS: PCP Internal Medicine; Visit Provider Internal Medicine
DX: E78.00 Pure hypercholesterolemia, unspecified (principal); I12.9 Hypertensive chronic kidney disease with stage 1 through stage 4 chronic kidney disease, or unspecified chronic kidney disease; N18.9 Chronic kidney disease, unspecified; J37.0 Chronic laryngitis; N40.1 Benign prostatic hyperplasia with lower urinary tract symptoms; R80.8 Other proteinuria; Z12.5 Encounter for screening for malignant neoplasm of prostate
CPT/HCPCS: 36415; 80053; 80061; 84153; 85025

== ENCOUNTER 2025-08-14 06:12 | Outpatient (REF) | payer OTHER, SELFPAY ==
--- OUTSIDE RECORDS SUMMARY | 2025-01-20 03:30 | XMS_ITS ---
Author Organization [facility] Address [address] [place] [address] Care Team Providers Care Track Laying Equipment Operator Name Role Phone Goldie Felipe Primary Care Provider Connor Saunders [phone] REASON FOR VISIT screening Encounters Encounter Location Date Provider Diagnosis [facility] [address] [place], [place] [phone] 01/20/2025 Connor Celeste Colon cancer scree rohith Z12.11 ; Colon polyps K63.5 ; Diverticulosis of large intestine without perforation or abscess without bleeding K57.30 and Other hemorrhoids K64.8 Assessments Encounter Date Diagnosis (ICD Code) Assessment Notes Treatment Notes Treatment Clinical Notes Section Notes 01/20/2025 Colon cancer screening (ICD-10 - Z12.11) 01/20/2025 Colon polyps (ICD-10 - K63.5) 01/20/2025 Diverticulosis of large intestine without perforation or abscess without bleeding (ICD-10 - K57.30) 01/20/2025 Other hemorrhoids (ICD-10 - K64.8) Plan Of Treatment No Information Progress Notes * ROCÍO VILLAREALDOB:[birth year] (50 yo M)Acc No.[id number]:01/20/2025 COLON WITH MAC Patient: Barrera HERNANDEZ ROCÍO TORRES Provider: Clinton Celeste MD :1975 A ge:49 Y S ex:Male Date:01/20/2025 Address:[address] [place] [address] [id number] Pcp:Goldie S Adlakha Subjective: * Chief Complaints: * 1 . Screening. * Medical History: Objective: * Vitals: Assessment: * Assessment: 1. C olon cancer screening - Z12.11 (Primary) 2 . C olon polyps - K63.5? 3. D iverticulosis of large intestine without perforation or abscess without bleeding - K57.30 4 . O ther hemorrhoids - K64.8 Plan: * Treatment: * Procedure Codes: 4 5385 LESION REMOVAL COLONOSCOPY, 80259 COLONOSCOPY AND BIOPSY, Modifiers: 59 * * The named appointment provid er may or may not be the originator of this progress note, and it is not deemed complete until electronically signed by the appointment provider. Sign off status: Pending * Provider: Clinton Celeste MD Date: 0 01/20/2025 Generated for Marcos de los santos/Juanjo/Cemitting on: 0 08/14/2025 06:16 AM EDT
--- OUTSIDE RECORDS SUMMARY | 2025-08-14 06:16 | XMS_ITS | Encounter Summary ---
Author Organization [facility] Address [address] [place] [address] Phone Care Team Providers Care Foot Cutter Name Role Phone Pcp, Unknown Primary Care Provider Goldie Phillips MD Primary Care Provider Encounter Details Date Type Department Care Team (Late st Contact Info) Description 06/10/2024 Procedure Pass Echo Lab [facility] [place] [id number] Social History Tobacco Use Types Packs/Day Years Used Date Smoking Tobacco: Former Cigarettes Passive Smoke Exposure: Never Smokeless Tobacco: Never Education Answer Date Recorded Are you interested in more education? Not on dayami e 03/30/2024 Are you concerned about learning? Not on file 03/30/2024 No 03/30/2024 No 03/30/2024 Digital Access Answer Date Recorded No 03/30/2024 No 03/30/2024 Reliable internet access at home? Not on file 03/30/2024 Device with a working camera? Not on file Sex and Gender Information Value Date Recorded Sex Assigned at Not on file Legal Sex Male 9:25 AM EDT Gender Identity Not on file Sexual Orientation Not on file documented as of this encounter Plan of Treatment Not on file documented as of this encounter Visit Diagnoses Not on filedocumented in this encounter Care Teams Foot Cutter Relationship Specialty Start Date End Date Pcp, Unknown PCP - General 03/30/24 10/11/24 Goldie Felipe MD [address] [place] [address] [place] [address] PCP - General Internal Medicine 10/12/24 documented as of this encounter Additional Source Comments The information contained in this document represents components of the legal health record. It is not the complete legal health record.[facility]
--- OUTSIDE RECORDS SUMMARY | 2025-08-14 06:16 | XMS_ITS | Clinical Summary ---
Author Organization [facility] Address [address] [place] [address] Phone Care Team Providers Care Kerrick Kleaner Operator Name Role Phone Goldie Felipe MD Primary Care Provider Allergies No known active allergies Medications losartan (COZAAR) 100 MG tablet Take 1 tablet by mouth every morning. 05/23/2024 Active metoprolol succinate (TOPROL-XL) 100 MG 24 hr tablet ONE TAKE ONE TABLET BY MOUTH ONCE DAILY 05/23/2024 Active tamsulosin (FLOMAX) 0.4 mg Cap Take 1 capsule by mouth every morning. 07/19/2024 Active NIFEdipine (ADALAT CC) 90 MG 24 hr tablet Take 90 mg by mouth daily. Patient unsure of the dose. Active amLODIPine-raoul zepril (LOTREL 5-20) 5-20 mg per capsule Take 1 capsule by mouth daily. Active Active Problems Problem Noted Date Diagnosed Date Benign essential hypertension 06/10/2024 Assessment & Plan (10/12/2024 9:19 AM EST): He is requiring a lot of medications but his pressure is under good control Assessment & Plan (06/10/2024 10:22 AM EDT): Mildly elevated today I asked him to create a blood pressure log which we will review in 4 months time Pure hypercholesterolemia 06/10/2024 Assessment & Plan (10/12/2024 9:19 AM EST): LDL should be less than 100 Assessment & Plan (06/10/2024 10:22 AM EDT): At some point we need to do a lipid panel LDL should be less than 100 mg/dL given his risk. Encounter for medication review 06/10/2024 Assessment & Plan (10/12/2024 9:19 AM EST): I made an extensive review of his medications I believe he is on the proper once for his blood pressure at the present time Assessment & Plan (06/10/2024 10:23 AM EDT): He brought in his nifedipine from the [place] which he is not currently taking and I instructed him to not take. He will remain on 100 mg of Cozaar and metoprolol long-acting until we review his blood pressure log. Social History Tobacco Use Types Packs/Day Years Used Date Smoking Tobacco: Former Cigarettes Passive Smoke Exposure: Never Smokeless Tobacco: Never Tobacco Cessation:Counseling Given: Not Answered Education Answer Date Recorded Are you interested [...] on file Sexual Orientation Not on file Last Filed Vital Signs Vital Sign Reading Time Taken Comments Blood Pressure 136/80 10/12/2024 9:02 AM EST Pulse 63 10/12/2024 9:02 AM EST Temperature - - Respiratory Rate - - Oxygen Saturation 97% 10/12/2024 9:02 AM EST Inhaled Oxygen Concentration - - Weight 82.2 kg (181 lb 3.2 oz) 10/12/2024 9:02 A M EST Height 165.1 cm (5' 5 ) 10/12/2024 9:02 AM EST Body Mass Index 30.15 10/12/2024 9:02 AM EST Plan of Treatment Health Maintenance Due Date Last Done Comments Adult Td,Tdap Booster 1975 CREATININE LEVEL 1975 LIPID PANEL 1975 POTASSIUM LEVEL 1975 DEPRESSION SCREENING 1985 SMOKING Hx and SMOKELESS TOB ACCO SCREENING 1986 HEPATITIS C SCREENING 1991 HIV ONE-TIME SCREENING (18-6 5 YEARS) 1991 SCREENING FOR DIABETES 2008 COLOGUARD 2018 COLONOSCOPY 2018 COLORECTAL CANCER SCREENING 2018 FIT TEST 2018 FOBT 2018 SIGMOIDOSCOPY 2018 VIRTUAL COLONOSCOPY 2018 PNEUMOCOCCAL VACCINES (50+ y ears) (1 of 1 - PCV) 2023 ZOSTER VACCINES (1 of 2) 2023 BLOOD PRESSURE 04/11/2025 10/12/2024 INFLUENZA VACCINE (#1) 2025 COVID-19 VACCINE (1 - 2023-2 5 season) 2025 HEPATITIS A VACCINES Aged Out No long er eligible based on patient's age to complete this topic HIB VACCINES Aged Out No longer eligi ble based on patient's age to complete this topic MENINGOCOCCAL VACCINES (ACWY) Aged Out No longer eligible based on patient's age to complete this topic MENINGOCOCCAL VACCINES (B) Aged Out N o longer eligible based on patient's age to complete this topic Medical Devices Not on file Insurance [facility] DIRECT [facility] SAFETY NET FULL HEALTH SAFETY NET PARTIAL DIRECT HEALTH SAFETY NET FULL HEALTH SAFETY NET PARTIAL [facility] DIRECT HEALTH SAFETY NET FULL HEALTH SAFETY NET PARTIAL [facility] DIRECT HEALTH SAFETY NET FULL Member Subscriber Plan / Payer (Ef fective 2024-Present) Name:Natalia Anthony Ayan Relation to Subscriber:Self Name:FisherAyan Reyez Payer ID:Not on file Group ID:Not on file Type:Medicaid Address: [address] SAFETY NET PARTIAL [employer] HE[employer] SAFETY NET F[employer] HE[employer] SAFETY NET PARTIAL [facility] DIRECT HEALTH SAFETY NET FULL HEALTH SAFETY NET PARTIAL Care Teams Kerrick Kleaner Operator Relationship Specialty Start Date End Date Goldie Felipe MD [address] [place] [address] Dr [place], [place] [address] PCP - General Internal Medicine 10/12/24 Additional Source Comments The information contained in this document represents components of the legal health record. It is not the complete legal health record.[facility]
--- OUTSIDE RECORDS SUMMARY | 2025-08-14 06:16 | XMS_ITS | Patient Health Record ---
Author Organization [facility] Address [address] [place] [address] Care Team Providers Care Check Scaler Name Role Phone Earnestinecandido Goldie Primary Care Provider Connor Saunders [phone] Allergies Allergen (clinical drug ingredient) Drug/Non Drug Allergy documented on EMR Reaction Allergy Type Onset Date Status Eggplant Unknown Allergy Active Results Component Value Reference Range Notes Pathology (Not yet reviewed by provider) Interpretation: Performing Lab:[facility], [address] [place] [phone] Notes/Report: Reason For Referral No Information Medications Medication [...] Status Risk Notes Problem Colon cancer screening (902744042) Colon cancer screening (Z12.11) Active confirmed Problem Pre-procedure evaluation check (372475985) Encounter for other preprocedural examination (Z01.818) Active confirmed Vital Signs Temperature 97.9 degrees Fahrenheit 09/21/2024 Blood pressure diastolic 00 mm Hg 09/21/2024 Height 5 ft 5 in in 09/21/2024 Blood pressure systolic 000 mm Hg 09/21/2024 Weight 180 lb 2 oz lbs 09/21/2024 BMI 29.97 kg/m2 09/21/2024 Encounters Encounter Location Date Provider Diagnosis [facility] [place] [address] [place] [phone] 01/20/2025 Connor Celeste Colon cancer screeni ng Z12.11 ; Colon polyps K63.5 ; Diverticulosis of large intestine without perforation or abscess without bleeding K57.30 and Other hemorrhoids K64.8 [facility] [address] [place] [address] 09/21/2024 Connor Celeste Colon cancer screeni ng Z12.11 and Encounter for other preprocedural examination Z01.818 [facility] [address] [place] [address] 09/21/2024 Connor Celeste Assessments Encounter Date Diagnosis [...] review the procedure again with a medical assistant internal medicine on the day of the procedure. Rocío [...] review the procedure again with a medical assistant internal medicine on the day of the procedure. Rocío [...] Insured Coverage Start Date Coverage End Date [facility] [address] [place] [address] [phone] [id number] ROCÍO VILLAREAL Self - patient is the insured Medical (General) History Medical History History ICD Code HTN BPH Denies [place],DM,CVA,Lung disease,renal dise ase Surgical History Surgery Date(Month/Year) Left leg surgery for a benign mass
[2025-08-14 07:49] LABS: Alanine Aminotransferase 37 U/L (0-40); Albumin Level 4.0 g/dL (3.5-5.0); Alkaline Phosphatase 58 U/L (39-117); Anion Gap 7 (12-20); Aspartate Amino Transferase 30 U/L (5-37); Blood Urea Nitrogen 23 mg/dL (9-16); Calcium 8.8 mg/dL (8.4-10.2); Carbon Dioxide 27 mmol/L (22-29); Chloride 110 mmol/L (96-108); Cholesterol 99 mg/dL (<200); Estimated Glomerular Filt Rate 55; HDL Cholesterol 23 mg/dL (>40); Potassium 4.1 mmol/L (3.3-5.1); Sodium 140 mmol/L (135-145); Total Protein 6.9 g/dL (6.5-8.0); Triglycerides 51 mg/dL (<150)
[2025-08-14 07:54] LABS: Thyroid Stimulating Hormone 1.07 uIU/mL (0.32-4.0)
== END 2025-08-14 06:13 | disposition home or self-care (01) ==
LOC: HO.LAB 06:12
PROVIDERS: PCP Internal Medicine; Visit Provider Internal Medicine
DX: Z00.00 Encounter for general adult medical examination without abnormal findings (principal); I12.9 Hypertensive chronic kidney disease with stage 1 through stage 4 chronic kidney disease, or unspecified chronic kidney disease; N18.9 Chronic kidney disease, unspecified; E78.00 Pure hypercholesterolemia, unspecified; F41.8 Other specified anxiety disorders; R53.83 Other fatigue
CPT/HCPCS: 36415; 80053; 80061; 84443

== ENCOUNTER 2025-08-24 09:03 | Outpatient (AMB) | payer OTHER, SELFPAY ==
[2025-08-24 09:24] VITALS: BP 112/78; PULSE 65; O2SAT 97; BMI 30.9
--- NOTE | 2025-08-24 09:24 | HO.NEPHOV_ITS ---
Vital Signs 08/24/25 09:24 Height 5 ft 5 in Weight 186 lb BMI 30.9 BP 112/78 Blood Pressure Location Lt brachial Position Sitting Pulse 65 Pulse Source Pulse Oximeter Pulse Oximetry (%) 97 Oxygen Delivery Method Room Air Intake Visit Reasons: 5 MO FU, confirmed Field Professional Required: No Field Professional Services: Field Professional Offered & Declined (Patient speeks norwegian ) Accompanied by: Spouse Allergies eggplant Allergy (Severe, Verified 08/24/25 09:27) Anaphylaxis Medication List - Last Reconciled 08/24/25 by Jason Spann MD amlodipine-valsartan 10-160 mg 1 tab PO DAILY atorvastatin 10 mg PO DAILY metoprolol succinate ER 100 mg PO DAILY HPI Comments Details: 49-year-old man with a history of hypertension. Blood pressure has been suboptimal. He was found to have serum creatinine 1.39 hence this referral. He is originally from [facility]. He has been compliant with the medication. 08/26/2024. Home blood pressure is suboptimal. 10/31 24 ; BP well controlled with Lotrel;Having cough x 1 month 03/23/25 No further cough after switching to Exforge BP well controlled 08/24/25 - The patient is a 50-year-old male presenting with hypertension - Essential Hypertension: Managed with medication, no side effects reported. - Insomnia: Difficulty sleeping, wakes at 3:00 AM, [employer] [facility] [employer] [facility] Medical History No blood products BPH (benign prostatic hyperplasia) HTN (hypertension) Liver disease Surgical History History of colonoscopy (~01/2025) H/O wisdom tooth extraction History of surgery on lower extremity Family History Father Prostate cancer Social History Household Members: Spouse Patient Tobacco Use Status: Former Tobacco user Physical Exam Vital Signs: Last Vital Signs Pulse 65 08/24/25 09:24 BP 112/78 08/24/25 09:24 Pulse Ox 97 08/24/25 09:24 Oxygen Delivery Method Room Air 08/24/25 09:24 BMI result Body Mass Index 30.9 Comfortable Neck supple no JVD. Lungs entry equal no rales. Heart S1-S2 heard no gallop or rub. Abdomen soft nontender. Neuro alert awake oriented. No asterixis. Extremities no edema. Results Reviewed Nephrology Results: Hgb, (14.0-18.0) 14.1 g/dl 05/18/25 WBC, (4.8-10.8) 8.0 X10*3/uL 05/18/25 Plt Count, (160-400) 220 X10*3/uL 05/18/25 Sodium, (135-145) 140 mmol/L 08/14/25 Potassium, (3.3-5.1) 4.1 mmol/L 08/14/25 Chloride, (96-108) 110 mmol/L H 08/14/25 Carbon Dioxide, (22-29) 27 mmol/L 08/14/25 BUN, (9-16) 23 mg/dL H 08/14/25 Creatinine, (0.5-1.4) 1.36 mg/dL 08/14/25 Calcium, (8.4-10.2) 8.8 mg/dL 08/14/25 Renal US 08/18/24 Assessment & Plan Assessment & Plan (1) Hypertension: Code(s): I10 - Essential (primary) hypertension Category: Medical (2) Nephrolithiasis: Code(s): N20.0 - Calculus of kidney Category: Medical (3) Elevated serum creatinine: Code(s): R79.89 - Other specified abnormal findings of blood chemistry Category: Medical Plan Middle-aged man with hypertension. Goal is to maintain blood pressure less than 130/80 he should stay on low-sodium diet. Since blood pressure is well controlled Lotrel switched ot Exforge due to cough I will continue EXFORGE h/o Elevated serum creatinine urine collection to calculate creatinine clearance of 85 mL/minute Cr is back to baseline . He might have underlying hypertensive nephrosclerosis. No evidence of obstructive uropathy based on renal ultrasound Twenty-four urine studies were reviewed. He should be on low-sodium diet Increase p.o. fluid intake to maintain urine output of 2 L in 24 hours All his questions were answered Orders: Orders Basic Metabolic Panel 6 Months I10 - Essential (primary) hypertension, N20.0 - Calculus of kidney Creatinine Urine 6 Months I10 - Essential (primary) hypertension, N20.0 - Calculus of kidney Total Protein Urine Random 6 Months I10 - Essential (primary) hypertension, N20.0 - Calculus of kidney UA and rflx microscopic 6 Months I10 - Essential (primary) hypertension, N20.0 - Calculus of kidney Coding Level of Care Code Est Pt Level 4 (81036) Diagnoses Hypertension I10 Nephrolithiasis N20.0 Elevated serum creatinine R79.89
== END 2025-08-24 09:42 | disposition home or self-care (01) ==
LOC: HO.HKA 09:03
PROVIDERS: PCP Internal Medicine; Visit Provider Internal Medicine Hypertension Specialist
DX: I10 Essential (primary) hypertension (principal); N20.0 Calculus of kidney; R79.89 Other specified abnormal findings of blood chemistry
CPT/HCPCS: 99214

== ENCOUNTER → 2025-08-24 09:03 | Outpatient (BNVA) | payer OTHER, SELFPAY | PROVIDERS: PCP Internal Medicine; Visit Provider Internal Medicine Hypertension Specialist | DX: I10 Essential (primary) hypertension (principal); N20.0 Calculus of kidney; R79.89 Other specified abnormal findings of blood chemistry | CPT/HCPCS: 99212 ==